=== PATIENT | female | born 1955 | race Caucasian/White ===

== ENCOUNTER → 2016-08-26 | Outpatient (CLI) | payer BC ==
[2016-08-26 17:38] LABS: Appearance,Urine Clear (Clear); Bilirubin,Urine Negative (Negative); Glucose,Urine (UA) Negative (Negative); Ketones,Urine Negative (Negative); Leukocyte Esterase,Urine Negative (Negative); Nitrite,Urine Negative (Negative); Protein,Urine Negative (Negative); Specific Gravity,Urine 1.004 (1.001-1.035); UA Billing (MACRO vs. MICRO) CHEM; Urobilinogen,Urine <2.0 mg/dL (<2.0)
--- NOTE | 2016-08-26 19:21 | HP ---
CHIEF COMPLAINT: The patient is here for her routine gynecologic exam. HISTORY OF PRESENT ILLNESS: This is a 60-year-old with an LMP of 2006. She states it has been about 4 years since her last pelvic exam. She has been experiencing some urinary symptoms since 06/24. She was treated by Dr. Davenport at that time. The symptoms slightly improved, but she does not feel that it was completely treated. She continues to have some bladder pressure, urinary frequency and urgency. She denies dysuria. The patient is otherwise without complaints and she denies any postmenopausal bleeding. PAST MEDICAL HISTORY: 1. Hypothyroidism. 2. Seasonal allergies. 3. Osteopenia. Dr. Davenport is her primary care physician. MEDICATIONS: 1. Levothyroxine 25 mcg daily. 2. Vitamin D3 2000 units daily. 3. Caltrate calcium supplement 600 mg with vitamin D one daily. 4. [id number] Zyrtec 10 mg p.r.n. ALLERGIES: NO KNOWN DRUG ALLERGIES. PAST SURGICAL HISTORY: 1. Tonsillectomy as a child. 2. Colonoscopy x2. The most recent one was in 2014. PAST OB HISTORY: One vaginal delivery. PAST WHAT JOB TITLES MEAN HISTORY: She has been menopausal since 2006 and has no history of STDs. FAMILY HISTORY: Father of CHF and pulmonary fibrosis. Mother has dementia. She has a great grandmother and a great aunt who had breast cancer. She had a grandmother who had heart disease and diabetes. REVIEW OF SYSTEMS: Weight has been stable. She denies respiratory, cardiac or GI problems. PHYSICAL EXAMINATION: Blood pressure 145/73. Height 5 feet 6 inches. Weight 142 pounds. Temperature 97.6, pulse 71. This is a well-developed, well-nourished white female who is alert and oriented x3, in no acute distress. HEENT is within normal limits. NECK: Supple without mass or thyromegaly. CHEST AND LUNGS: Clear to auscultation. HEART: Regular rate and rhythm. Breasts are without mass or discharge. Axillary exam is negative for adenopathy. BACK: Negative for CVA tenderness. ABDOMEN: Soft, non-tender, without palpable masses. PELVIC EXAM: External genitalia reveal mild to moderate atrophy without lesions. There is a benign-appearing mole in the groin crease near the buttock measuring approximately 8 mm. Cervix and vagina reveal mild to moderate atrophy without lesions. There is no evidence of prolapse. The uterus is mid position, non-gravid size and non-tender. There are no palpable adnexal masses or tenderness. Rectovaginal exam is negative for mass or tenderness and is negative for occult blood. Extremities are non-tender. IMPRESSION: 1. [id number]-paru-[id number] menopausal female with normal gynecologic exam. 2. Benign-appearing skin mole in the left groin crease near the buttock. 3. Urinary symptoms consisting of urinary urgency and frequency. PLAN: 1. Pap smear was performed. 2. Self breast examination was discussed. 3. Mammogram will be due in 05/26, according to the patient, and a slip was given to the patient for this. She would like to continue to go to [facility] for this. 4. UA and C&S were obtained. This was a clean catch, a voided specimen. 5. I have discussed the benign-appearing mole with the patient. She believes she has had this for many years. I have advised her to check this on a regular basis to look for changes, and she will notify me if she does notice changes. 6. We have discussed her osteopenia, and osteoporosis prevention was also discussed. She will continue to follow up with Dr. Davenport for bone density testing as she has done in the past. 7. She will return in one year. MOR
== END | disposition home or self-care (01) ==
LOC: WWCWWP 07:48
PROVIDERS: ATTEND Obstetrics & Gynecology
DX: Z01.419 Encounter for gynecological examination (general) (routine) without abnormal findings (principal); R35.0 Frequency of micturition
CPT/HCPCS: 81003; 87086

== ENCOUNTER → 2017-09-14 | Outpatient (CLI) | payer BC ==
[2017-09-14 08:02] VITALS: BP 122/72; PULSE 72; TEMP 98; BMI 23.8
--- NOTE | 2017-09-14 08:37 | P.HPOB ---
History of Present Illness H&P Date: 09/14/17 Chief Complaint: The patient is here for her routine gynecologic exam. This is a 61-year-old with an LMP of 2006. The patient is without gynecologic complaints. She has been doing her bone density testing through Dr. Davenport. She had a mammogram on 09/08/2017 and was normal according to the patient. She will try to have a copy of this sent to me. Review of Systems The patient has gained 6 pounds over the last year. She denies respiratory, cardiac, or G.I. problems. 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 [employer] - Past Family History Father Family Medical History: Congestive Heart Failure (CHF) Additional Family Medical History / Comment(s): Pulmonary fibrosis Mother Family Medical History: Dementia Additional Family Medical History / Comment(s): Great grandmother and great aunt had breast cancer Medications and Allergies Home Medications Medication Instructions Recorded Confirmed Type Calcium Carbonate/Vitamin D3 tab PO DAILY 09/14/17 History [Caltrate 600 Plus D3 Tablet] Cetirizine HCl [Zyrtec] PO DIRECTED 09/14/17 History Cholecalciferol (Vitamin D3) cap PO DAILY 09/14/17 History [Vitamin D3] Levothyroxine Sodium [Synthroid] PO MDD d 09/14/17 History Magnesium Gluconate [Magonate] mg PO DAILY 09/14/17 History Allergies Allergy/AdvReac Type Severity Reaction Status Date / Time No Known Allergies Allergy Unverified 09/14/17 07:52 Exam Vital Signs Temp Pulse BP 09/14/17 07:54 98.0 F 72 122/72 Intake and Output 09/13/17 09/14/17 09/14/17 22:59 06:59 14:59 Other: Weight 67.132 kg Height 5'6", BMI 23.9. This is a well-developed well-nourished white female who is alert and oriented times 3 in no acute distress. HEENT: Within normal limits. NECK: Supple without mass or thyromegaly. CHEST AND LUNGS: Clear to auscultation. HEART: Regular rate and rhythm. BREASTS: Are without mass or discharge. AXILLARY EXAM: Negative for adenopathy. BACK: Negative for CVA tenderness. ABDOMEN: Soft, nontender, without palpable masses. PELVIC EXAM: Normal external genitalia with mild atrophy. There is a benign appearing mole in the groin crease near the left buttock measuring approximately 8 mm. This is stable from her exam last year. Cervix and vagina appear normal with mild atrophy. There is no unusual discharge. There is no evidence of prolapse. The uterus is midposition, nongravid size and nontender. There are no palpable adnexal masses or tenderness. RECTAL EXAM: rectovaginal exam is negative for mass or tenderness and is negative for occult blood. EXTREMITIES: Nontender. IMPRESSION: 1. 61 year old menopausal female with normal gynecologic exam. 2. Stable benign appearing skin mole in the left groin crease near the buttock. 3. History of osteopenia. PLAN: 1. Pap smear was deferred since she had a normal one last year. 2. Self breast awareness was discussed. 3. Screening mammogram was done on 09/08/2017 and was normal per the patient. She will try to get a copy of this mammogram to me from Dr. Davenport. Mammograms has been ordered by Dr. Davenport and has been done at [facility]. I have asked her to try to have copies of future mammogram sent to me. 4. She states she is scheduled for a screening colonoscopy on 09/27/2017. 5. Osteoporosis prevention was discussed. Bone density testing will be done through Dr. Davenport, as she has done in the past. 6. She will be having a skin cancer screening done by Dr. Davenport in the near future, according to the patient. 7. She will return in one year.
== END | disposition home or self-care (01) ==
LOC: WWCWWP 07:41
PROVIDERS: ATTEND Obstetrics & Gynecology
DX: Z53.9 Procedure and treatment not carried out, unspecified reason (principal)

== ENCOUNTER → 2018-11-08 | Outpatient (CLI) | payer BC ==
[2018-11-08 11:27] VITALS: BP 132/78; PULSE 73; RESP 18; TEMP 98.7; BMI 25.9
--- NOTE | 2018-11-08 12:08 | P.HPOB ---
History of Present Illness H&P Date: 11/08/18 Chief Complaint: The patient is here for her routine gynecologic exam. This is a 63-year-old with an LMP of 2006. The patient is without gynecologic complaints and denies any postmenopausal bleeding. Review of Systems The patient has gained 8 pounds over the last year. She denies respiratory, cardiac, or G.I. problems. Past Medical History Past Medical History: No Reported History, Thyroid Disorder Additional Past Medical History / Comment(s): Seasonal allergies and osteopenia. Hypothyroidism. 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 History of Any Multi-Drug Resistant Organisms: None Reported Past Surgical History: Tonsillectomy Additional Past Surgical History / Comment(s): Colonoscopy 2014(2nd, next after 5yrs). 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 - Past Family History Father Family Medical History: Congestive Heart Failure (CHF) Additional Family Medical History / Comment(s): Pulmonary fibrosis Mother Family Medical History: Dementia Additional Family Medical History / Comment(s): Great grandmother and great aunt had breast cancer Medications and Allergies Home Medications Medication Instructions Recorded Confirmed Type Calcium Carbonate/Vitamin D3 1 tab PO DAILY 09/14/17 11/08/18 History [Caltrate 600 Plus D3 Tablet] Cetirizine HCl [Zyrtec] 1 tab PO DIRECTED 09/14/17 11/08/18 History Levothyroxine Sodium [Synthroid] 1 tab PO DAILY MDD d 09/14/17 11/08/18 History Collagen Peptids 1 tab PO DAILY 11/08/18 11/08/18 History Allergies Allergy/AdvReac Type Severity Reaction Status Date / Time measles vaccine, live Allergy Rash/Hives Unverified 11/08/18 11:28 Exam Vital Signs Temp Pulse Resp BP Pulse Ox 11/08/18 11:21 98.7 F 73 18 132/78 97 Intake and Output 11/07/18 11/08/18 11/08/18 22:59 06:59 14:59 Other: Weight 70.76 kg Height 5 feet 5 inches, weight 156 pounds, BMI 26.0. This is a well-developed well-nourished white female who is alert and oriented times 3 in no acute distress. HEENT: Within normal limits. NECK: Supple without mass or thyromegaly. CHEST AND LUNGS: Clear to auscultation. HEART: Regular rate and rhythm. BREASTS: Are without mass or discharge. AXILLARY EXAM: Negative for adenopathy. BACK: Negative for CVA tenderness. ABDOMEN: Soft, nontender, without palpable masses. PELVIC EXAM: Normal external genitalia with mild to moderate atrophy. Cervix and vagina appear normal with mild to moderate atrophy. Cervix is somewhat stenotic secondary to atrophy. There is no unusual discharge. There is no evidence of prolapse. The uterus is midposition, nongravid size and nontender. There are no palpable adnexal masses or tenderness. RECTAL EXAM: Rectovaginal exam is negative for mass or tenderness and is negative for occult blood. EXTREMITIES: Nontender. IMPRESSION: 1. 63-year-old menopausal female with normal gynecologic exam. 2. History of osteopenia. PLAN: 1. Pap smear was performed. 2. Self breast awareness was discussed with the patient. 3. Screening mammogram was done on 09/23/2018 and was benign. This will be repeated in 1 year. 4. Osteoporosis prevention was discussed. I have stressed the importance of adequate calcium, vitamin D and regular exercise. Recommended amounts of calcium and vitamin D were also discussed. Bone density testing will be done through Dr. Davenport as she has done in the past. She believes her last one was done within the past year. 5. She was advised to return in one year for her annual well woman exam.
== END | disposition home or self-care (01) ==
LOC: WWCWWP 11:11
PROVIDERS: ATTEND Obstetrics & Gynecology
DX: Z53.9 Procedure and treatment not carried out, unspecified reason (principal)

== ENCOUNTER → 2020-11-06 | Outpatient (CLI) | payer OTHER ==
--- NOTE | 2020-11-06 16:51 | XR ---
EXAMINATION TYPE: XR ankle complete RT DATE OF EXAM: 11/06/2020 COMPARISON: NONE HISTORY: Ankle pain TECHNIQUE: 3 views FINDINGS: There is soft tissue swelling around the ankle joint. Detail limited by the cast. There is nondisplaced oblique fracture distal fibula. IMPRESSION: Soft tissue swelling. Lateral malleolus fracture. No significant displacement.
== END | disposition home or self-care (01) ==
LOC: RADXRMAIN 16:27
PROVIDERS: ATTEND Emergency Medicine
DX: S82.61XA Displaced fracture of lateral malleolus of right fibula, initial encounter for closed fracture (principal)

== ENCOUNTER → 2021-08-28 | Outpatient (CLI) | payer MEDICARE ==
[2021-08-28 13:17] VITALS: BP 147/83; PULSE 83; RESP 16; TEMP 99.1
--- NOTE | 2021-08-28 13:45 | P.GSHP ---
History of Present Illness H&P Date: 08/28/21 Chief Complaint: abnormal mammogram Brigitte is a 65 year old white female seen in consultation for Dr. Davenport regarding a mammographic abnormality in her she underwent a bilateral mammogram on . Report noted a slight fluctuating nodularity in the right breast. This was located in the posterior upper outer quadrant, she was also noted to have some nodularity in the subareolar right breast which was slightly more defined. It was felt this may be a cyst or intramammary lymph node. Short interval follow-up at 6 months was recommended. The patient was noted of concern in the left breast. Patient does not feel any new lumps masses or nodules of concern in either breast. She is not complaining of any nipple discharge or skin changes. She has not had any recent trauma or infection in the breast. She's never had any breast biopsies or surgery on her breast. Caffeine: 2 cups/day nicotine: none hormones: none; BCP in the past stopped 20 years ago used them for 10 years Family History: maternal great aunt: breasts cancer maternal great grandmother: breast cancer Hormonal History: menarche: 15 , breast fed: yes, age at : 30 menopause: 50 Surgical History: wisdom teeth Medical History: left bundle branch block/ recent stress test hypothyroid/Katlyn's Social History: nicotine: none alcohol: wine QOD drug: none - Constitutional Constitutional: Denies chills, Denies fever - EENT Eyes: denies blurred vision, denies pain Ears: deny: decreased hearing, tinnitus Ears, nose, mouth and throat: Denies headache, Denies sore throat - Breasts Breasts: bilateral: as per HPI - Cardiovascular Cardiovascular: Reports as per HPI - Respiratory Respiratory: Denies cough, Denies 7 - Gastrointestinal Gastrointestinal: Denies abdominal pain, Denies diarrhea, Denies nausea, Denies vomiting - Genitourinary (Female) Genitourinary: Denies dysuria, Denies hematuria - Menstruation Menstruation: Reports postmenopausal - Musculoskeletal Musculoskeletal: Denies myalgias - Integumentary Comment: hypersensativity recent allergy testing Integumentary: Reports pruritus, Denies rash - Neurological Neurological: Denies numbness, Denies weakness - Psychiatric Psychiatric: Denies anxiety, Denies depression - Endocrine Endocrine: Denies fatigue, Denies weight change - Hematologic/Lymphatic Comment: none - Allergic/Immunologic Allergic/Immunologic: Reports as per HPI Past Medical History Past Medical History: No Reported History, Thyroid Disorder Additional Past Medical History / Comment(s): Seasonal allergies and osteopenia. 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 History of Any Multi-Drug Resistant Organisms: None Reported Past Surgical History: Tonsillectomy Additional Past Surgical History / Comment(s): Colonoscopy 2015(2nd, next after 5yrs). Past Psychological History: No Psychological Hx Reported Smoking Status: Former smoker Past Alcohol Use History: Occasional Past Drug Use History: None Reported - Past Family History Father Family Medical History: Congestive Heart Failure (CHF) Additional Family Medical History / Comment(s): Pulmonary fibrosis Mother Family Medical History: Dementia Additional Family Medical History / Comment(s): Great grandmother and great aunt had breast cancer Medications and Allergies Home Medications Medication Instructions Recorded Confirmed Type Calcium Carbonate/Vitamin D3 1 tab PO DAILY 09/14/17 08/28/21 History [Caltrate 600 Plus D3 Tablet] Cetirizine HCl [Zyrtec] 1 tab PO DIRECTED 09/14/17 08/28/21 History Levothyroxine Sodium [Synthroid] 1 tab PO DAILY 09/14/17 08/28/21 History Collagen Peptids 1 tab PO DAILY 11/08/18 08/28/21 History Ascorbic Acid [Vitamin C] 500 mg PO DAILY 08/28/21 08/28/21 History Cholecalciferol [Vitamin D3 (25 25 mcg PO DAILY 08/28/21 08/28/21 History Mcg = 1000 Iu)] Famotidine [Pepcid] 0 mg PO DAILY 08/28/21 08/28/21 History Allergies Allergy/AdvReac Type Severity Reaction Status Date / Time measles vaccine, live Allergy Rash/Hives Unverified 08/28/21 13:17 Surgical - Exam Vital Signs Temp Pulse Resp BP Pulse Ox 99.1 F 83 16 147/83 99 08/28/21 13:13 08/28/21 13:13 08/28/21 13:13 08/28/21 13:13 08/28/21 13:13 BMI: 24.7 - Eyes normal ocular movement - Neck trachea midline - Respiratory normal respiratory effort, clear to auscultation - Cardiovascular Rhythm: regular Heart Sounds: normal: S1, S2 - Abdomen Abdomen: soft, non tender, no guarding, no rigid, no rebound - Integumentary normal turgor - Neurologic no disoriented, no combative - Musculoskeletal normal gait - Psychiatric oriented to time, oriented to person, oriented to place, speech is normal, memory intact Breast Exam: BRA: 38DD inspection: Right breast slightly larger than left breast, grade 2/3 ptosis Palpation: Right breast: Multiple positional exam fibrocystic changes no dominant masses or nodules of concern Right axilla: No adenopathy of concern Left breast: Multiple positional exam fibrocystic changes no dominant masses or nodules of concern Left axilla: No adenopathy of concern Results Mammogram reviewed with Dr. Soto; 2 areas of more distinct nodularity than on prior films identified in the right breast when upper outer quadrant posteriorly and one in the periareolar area Assessment and Plan Assessment: Impression: Fibrocystic breast changes Prominent nodular areas right breast in 2 sites on mammogram from [id number]/reviewed with Dr. Hendrix ultrasound recommended Plan: Ultrasound right breast particular attention to areas of nodularity noted on mammogram If ultrasound does not reveal anything of concern with repeat mammogram in 6 months, if ultrasound has any areas of concern would consider core biopsy Cc: Dr. Davenport
--- NOTE | 2021-08-28 14:24 | USB ---
Reason for Exam: Additional evaluation requested from abnormal screening. Patient History: Menarche at age 15. First Full-Term at age 30. Late child-bearing (after 30). Maternal grandmother had breast cancer. Maternal aunt had breast cancer. Risk Values: Corrine 5 year model risk: 2.1%. NCI Lifetime model risk: 7.8%. Technique: Method: Whole Breast Handheld. Patient Position: Supine. Prior Study Comparison: 10/04/2007 Right Diagnostic Mammogram, [facility]. 10/04/2008 Bilateral Screening Mammogram, [facility]. 05/13/2011 Bilateral Screening Mammogram, [facility]. Findings: The whole breast of the right breast, the axilla of the right breast and the retroareolar of the right breast were scanned. Whole right breast ultrasound is performed including scanning of the subareolar region and axilla. There is some nonocclusive clot periareolar duct ectasia noted. No internal filling defect. At the 10:00 position, 10 cm from the nipple, there is a 8mm benign-appearing laxity tail lymph node. No other solid or cystic lesion. Short interval follow-up diagnostic right breast mammogram recommended. Overall Assessment: Probably benign, BI-RAD 3 Management: Diagnostic Mammogram of the right breast in 4 months. 1. 4 month follow-up diagnostic right breast mammogram (to serve as comparison to the patient's 07/02/2021 screening exam) in order to reassess the fluctuating nodularity, some of which is slightly larger over the course of 3 years. 2. Patient should continue monthly self breast exams. A clinical breast exam by your physician is recommended on an annual basis. Electronically signed and approved by: Dipesh Soto M.D. Radiologist
== END ==
LOC: WWCWWP 12:27
PROVIDERS: ATTEND Surgery
DX: N60.11 Diffuse cystic mastopathy of right breast (principal); N60.12 Diffuse cystic mastopathy of left breast; E03.9 Hypothyroidism, unspecified; Z87.891 Personal history of nicotine dependence; Z79.890 Hormone replacement therapy; Z88.7 Allergy status to serum and vaccine

== ENCOUNTER → 2021-12-29 | Outpatient (CLI) | payer MEDICARE ==
--- NOTE | 2021-12-29 09:41 | MM ---
Reason for Exam: Follow-up at short interval from prior study. Last screening mammogram was performed 6 month(s) ago. Patient History: Menarche at age 15. First Full-Term at age 30. Late child-bearing (after 30). Postmenopausal. Patient has history of breast feeding. Maternal grandmother had breast cancer under age 50. Risk Values: Corrine 5 year model risk: 2.1%. NCI Lifetime model risk: 7.5%. Prior Study Comparison: 10/04/2007 Right Diagnostic Mammogram, [facility]. 10/04/2008 Bilateral Screening Mammogram, [facility]. 05/13/2011 Bilateral Screening Mammogram, [facility]. 09/23/2018 Bilateral MG screening mammo w CAD - 2, Unknown. 07/02/2021 Bilateral MG screening mammo w CAD - 2, Unknown. Tissue Density: Right: The breast tissue is heterogeneously dense. This may lower the sensitivity of mammography. Findings: Analyzed By CAD. Chronic nodularity right breast unchanged from prior study. No suspicious pulmonary nodules or masses. No suspicious microcalcifications. Overall Assessment: Benign, BI-RAD 2 Management: Screening Mammogram of both breasts in 6 months. A clinical breast exam by your physician is recommended on an annual basis and results should be correlated with mammographic findings. This exam should not preclude additional follow-up of suspicious palpable abnormalities. Results were given to the patient verbally at the time of exam. Electronically signed and approved by: Enrique Herbert M.D. Radiologis
== END | disposition home or self-care (01) ==
LOC: RADMAMWWP 08:51
PROVIDERS: ATTEND Surgery
DX: R92.8 Other abnormal and inconclusive findings on diagnostic imaging of breast (principal); Z78.0 Asymptomatic menopausal state; Z80.3 Family history of malignant neoplasm of breast
CPT/HCPCS: 77065; G0279; 77061

== ENCOUNTER → 2022-01-08 | Outpatient (CLI) | payer MEDICARE ==
[2022-01-08 09:08] VITALS: BP 141/64; PULSE 76; RESP 17; TEMP 98
--- NOTE | 2022-01-08 09:45 | P.PN ---
Subjective Progress Note Date: 01/08/22 Principal diagnosis: fibro cystic breast changes Brigitte is a 66 year old white female seen in consultation for Dr. Davenport regarding a mammographic abnormality in [place] [id number]. Report noted a slight fluctuating nodularity in the right breast. This was located in the posterior upper outer quadrant, she was also noted to have some nodularity in the subareolar right breast which was slightly more defined. It was felt this may be a cyst or intramammary lymph node. Short interval follow-up at 6 months was recommended. The patient did not note anything of concern in the left breast. Patient does not feel any new lumps masses or nodules of concern in either breast. She is not complaining of any nipple discharge or skin changes. She has not had any recent trauma or infection in the breast. She's never had any breast biopsies or surgery on her breast. She underwent a right breast mammogram on [id number] which was benign BIRADS 2. Caffeine: 2 cups/day nicotine: none hormones: none; BCP in the past stopped 20 years ago used them for 10 years Family History: maternal great aunt: breasts cancer maternal great grandmother: breast cancer Hormonal History: menarche: 15 , breast fed: yes, age at : 30 menopause: 50 Surgical History: wisdom teeth Medical History: left bundle branch block/ has had stress tests done hypothyroid/Katlyn's Social History: nicotine: none alcohol: wine QOD drug: none - Constitutional Constitutional: Denies chills, Denies fever - EENT Eyes: denies blurred vision, denies pain Ears: deny: decreased hearing, tinnitus Ears, nose, mouth and throat: Denies headache, Denies sore throat - Breasts Breasts: bilateral: as per HPI - Cardiovascular Cardiovascular: Reports as per HPI - Respiratory Respiratory: Denies cough - Gastrointestinal Gastrointestinal: Denies abdominal pain, Denies diarrhea, Denies nausea, Denies vomiting - Genitourinary (Female) Genitourinary: Denies dysuria, Denies hematuria - Menstruation Menstruation: Reports postmenopausal - Musculoskeletal Musculoskeletal: Denies myalgias - Integumentary Comment: hypersensativity recent allergy testing Integumentary: Reports pruritus, Denies rash - Neurological Neurological: Denies numbness, Denies weakness - Psychiatric Psychiatric: Denies anxiety, Denies depression - Endocrine Endocrine: Denies fatigue, Denies weight change - Hematologic/Lymphatic Comment: none - Allergic/Immunologic Allergic/Immunologic: Reports as per HPI Past Medical History Past Medical History: No Reported History, Thyroid Disorder Additional Past Medical History / Comment(s): Seasonal allergies and osteopenia. Hypothyroidism. PAST [employer] HISTORY: She has no history of STDs. History of Any Multi-Drug Resistant Organisms: None Reported Past Surgical History: Tonsillectomy Additional Past Surgical History / Comment(s): Colonoscopy 2015(2nd, next after 5yrs). Past Psychological History: No Psychological Hx Reported Smoking Status: Former smoker Past Alcohol Use History: Occasional Past Drug Use History: None Reported - Past Family History Father Family Medical History: Congestive Heart Failure (CHF) Additional Family Medical History / Comment(s): Pulmonary fibrosis Mother Family Medical History: Dementia Additional Family Medical History / Comment(s): Great grandmother and great aunt had breast cancer Objective - Vital Signs Vital signs: Vital Signs Temp 98 F 01/08/22 09:06 Pulse 76 01/08/22 09:06 Resp 17 01/08/22 09:06 BP 141/64 01/08/22 09:06 Pulse Ox 100 01/08/22 09:06 FiO2 Intake & Output 01/07/22 01/08/22 01/08/22 18:59 06:59 18:59 Weight 68.946 kg - Constitutional General appearance: Present: cooperative - EENT Eyes: Present: EOMI ENT: Present: hearing grossly normal - Neck Neck: Present: normal ROM - Respiratory Respiratory: bilateral: CTA - Cardiovascular Rhythm: regular Heart sounds: normal: S1, S2 - Integumentary Integumentary: Present: normal turgor - Musculoskeletal Musculoskeletal: Present: gait normal - Psychiatric Psychiatric: Present: A&O x's 3, appropriate affect, intact judgment & insight - Additional findings Additional findings: Breast exam: BRA: 38D inspection: Bilateral grade 2/3 ptosis Palpation: Right breast: Multi-positional exam fibrocystic changes, under the breast there appears to be some fungal infection Left breast: Multiple positional exam fibrocystic changes, under the breast and the medial aspect some questionable 5 fungal changes Bilateral axilla: No adenopathy of concern Assessment and Plan Assessment: Impression: Fibrocystic breast changes Recent right breast mammogram benign BIRADS 2 Plan: Repeat bilateral mammogram in 6 months with a physician exam at that time Nystatin as needed for fungal infection under both breasts particularly in the medial aspects CC: Dr. Davenport
== END ==
LOC: WWCWWP 08:53
PROVIDERS: ATTEND Surgery
DX: N60.11 Diffuse cystic mastopathy of right breast (principal); N60.12 Diffuse cystic mastopathy of left breast; Z87.891 Personal history of nicotine dependence; Z88.7 Allergy status to serum and vaccine

== ENCOUNTER → 2022-06-29 | Outpatient (CLI) | payer MEDICARE ==
--- NOTE | 2022-06-30 08:28 | MM ---
Reason for Exam: Screening (asymptomatic). Last screening mammogram was performed 12 month(s) ago. Patient History: Menarche at age 15. First Full-Term at age 30. Late child-bearing (after 30). Postmenopausal. Patient has history of breast feeding. Risk Values: Corrine 5 year model risk: 2.1%. NCI Lifetime model risk: 7.5%. Prior Study Comparison: 09/23/2018 Bilateral MG screening mammo w CAD - 2, Unknown. 07/02/2021 Bilateral MG screening mammo w CAD - 2, Unknown. 12/29/2021 Right MG 3D diag mammo w/cad RT, [facility]. Tissue Density: The breast tissue is heterogeneously dense. This may lower the sensitivity of mammography. Findings: Analyzed By CAD. There is no suspicious group of microcalcifications or new suspicious mass in either breast. Overall Assessment: Negative, BI-RAD 1 Management: Screening Mammogram of both breasts in [address] [facility] will attempt to contact patient to return for supplemental views and ultrasound if indicated. Patient should continue monthly self-breast exams. A clinical breast exam by your physician is recommended on an annual basis. This exam should not preclude additional follow-up of suspicious palpable abnormalities. Note on Corrine scores and lifetime risk: 1. A Corrine score greater than 3% is considered moderate risk. If this is the case, consider specialist referral to assess eligibility for a risk reducing agent. 2. If overall lifetime risk for the development of breast cancer is 20% or higher, the patient may qualify for future screening with alternating mammogram and breast MRI. Electronically signed and approved by: Ilir Boyd DO
== END | disposition home or self-care (01) ==
LOC: RADMAMWWP 08:51
PROVIDERS: ATTEND Surgery
DX: Z12.31 Encounter for screening mammogram for malignant neoplasm of breast (principal); Z78.0 Asymptomatic menopausal state
CPT/HCPCS: 77063; 77067

== ENCOUNTER 2022-12-22 10:16 | Day surgery (SDC) | payer MEDICARE ==
[2022-12-18 14:52] VITALS: BMI 25.4
[~2022-12-22 10:16] MED LIST: LACTATED RINGERS 1,000 ML IV SCH; LIDOCAINE 1% (10MG/ML) FOR IV START INTRADERMA PRN
[2022-12-22 11:02] VITALS: RESP 16; TEMP 99.7
[2022-12-22] MEDS ORDERED: PROPOFOL 10 MG/ML 20 ML VIAL IV ONE (11:47)
--- NOTE | 2022-12-22 12:14 | P.PCN ---
Date of Procedure: 12/22/22 Procedure(s) Performed: BRIEF HISTORY: Patient is a 67-year-old pleasant white female scheduled for an elective colonoscopy as a part of evaluation of prior history of colon polyps. Last colonoscopy was 5 years ago. PROCEDURE PERFORMED: Colonoscopy with snare polypectomy, biopsy and argon plasma coagulation PREOPERATIVE DIAGNOSIS: History of colon polyps. IV sedation per Anesthesia. PROCEDURE: After informed consent was obtained, the patient, was brought into the endoscopy unit. IV sedation was administered by Anesthesia under continuous monitoring. Digital rectal examination was normal. Initially the Olympus CF-160 flexible video colonoscope was then inserted in the rectum, gradually advanced into the cecum without any difficulty. Careful examination was performed as the scope was gradually being withdrawn. The appendiceal orifice were visualized and appeared normal. Prep was excellent. On the ileocecal valve and the inferior the there was a 2 cm flat polyp identified. Part of the polyp was removed by snare polypectomy. Since the polyp could not be removed completely multiple b iopsies were done from this area. Following this argon plasma coag ablation was performed along the entire polyp on the ileocecal valve. Mucosa of the cecum, ascending colon, transverse colon, descending colon, sigmoid colon, and rectum appeared normal. Retroflexion was performed in the rectum and no lesions were seen. The patient tolerated the procedure well. IMPRESSION: 2 cm flat polyp on the inferior lip of the ileocecal valve status post partial snare polypectomy followed by multiple biopsies and argon plasma coagulation and almost complete polypectomy accomplished Rest of the colon appeared normal RECOMMENDATIONS: Findings of this examination were discussed with the patient is a family.. He was advised to follow with the biopsy results. She'll be seen in office in 2 weeks. Reason the biopsy results will plan a repeat colonoscopy in 6 months
[2022-12-22 12:46] VITALS: BP 114/66; PULSE 67
== END 2022-12-22 13:19 | disposition home or self-care (01) ==
LOC: ORWHC2ENDO 10:16
PROVIDERS: ATTEND Internal Medicine Gastroenterology
DX: Z12.11 Encounter for screening for malignant neoplasm of colon (principal); I10 Essential (primary) hypertension; E78.5 Hyperlipidemia, unspecified; I44.7 Left bundle-branch block, unspecified; E03.9 Hypothyroidism, unspecified; Z79.890 Hormone replacement therapy; Z87.891 Personal history of nicotine dependence; Z88.8 Allergy status to other drugs, medicaments and biological substances; Z86.010 Personal history of colon polyps; Z79.899 Other long term (current) drug therapy
CPT/HCPCS: 88305; 88342; 45380; 45385; 45388; J2704

== ENCOUNTER 2023-06-29 10:21 | Day surgery (SDC) | payer MEDICARE ==
[2023-06-23 13:36] VITALS: BMI 25.7
[2023-06-29] MEDS: LACTATED RINGERS 1,000 ML IV ONE (10:30)
[2023-06-29 11:35] VITALS: RESP 18; TEMP 97.2
[2023-06-29] MEDS ORDERED: PROPOFOL 10 MG/ML 20 ML VIAL IV ONE (11:41)
--- NOTE | 2023-06-29 11:53 | P.PCN ---
Date of Procedure: 06/29/23 Procedure(s) Performed: BRIEF HISTORY: Patient is a 67-year-old pleasant white female scheduled for an elective colonoscopy as a part of follow-up of large/polyp in the cecal valve noted on the routine screening colonoscopy December 2022. PROCEDURE PERFORMED: Colonoscopy. PREOPERATIVE DIAGNOSIS: Follow-up ileocecal valve polyp. IV sedation per Anesthesia. PROCEDURE: After informed consent was obtained, the patient, was brought into the endoscopy unit. IV sedation was administered by Anesthesia under continuous monitoring. Digital rectal examination was normal. Initially the Olympus CF-160 flexible video colonoscope was then inserted in the rectum, gradually advanced into the cecum without any difficulty. Careful examination was performed as the scope was gradually being withdrawn. Ileocecal valve and the appendiceal orifice were visualized and appeared normal. Prep was excellent. Mucosa of the cecum, ascending colon, transverse colon, descending colon, sigmoid colon, and rectum appeared normal. Retroflexion was performed in the rectum and no lesions were seen. The patient tolerated the procedure well. IMPRESSION: No residual polyp noted on the ileocecal valve Rest of the colon appeared normal RECOMMENDATIONS: Findings of this examination were discussed with the patient as well as her family. She was advised to have repeat screening colonoscopy in 5 years..
[2023-06-29] MEDS ORDERED: LIDOCAINE 1% (10MG/ML) FOR IV START INTRADERMA PRN (11:59)
[2023-06-29] MEDS ORDERED: LACTATED RINGERS 1,000 ML IV SCH (11:59)
[2023-06-29 12:32] VITALS: BP 129/68; PULSE 69
== END 2023-06-29 12:40 | disposition home or self-care (01) ==
LOC: ORWHC2ENDO 10:21
PROVIDERS: ATTEND Internal Medicine Gastroenterology
DX: Z12.11 Encounter for screening for malignant neoplasm of colon (principal); I10 Essential (primary) hypertension; E78.5 Hyperlipidemia, unspecified; E07.9 Disorder of thyroid, unspecified; Z86.010 Personal history of colon polyps; Z87.891 Personal history of nicotine dependence; Z79.890 Hormone replacement therapy
CPT/HCPCS: J2704; G0105

== ENCOUNTER → 2023-07-21 | Outpatient (CLI) | payer MEDICARE ==
--- NOTE | 2023-07-27 11:46 | MM ---
Reason for Exam: Screening (asymptomatic). Last mammogram was performed 1 year(s) and 1 month(s) ago. Patient History: Menarche at age 15. First Full-Term at age 30. Late child-bearing (after 30). Postmenopausal. Patient has history of breast feeding. Maternal grandmother had breast cancer. Maternal aunt (great) had breast cancer. Risk Values: Corrine 5 year model risk: 2.1%. NCI Lifetime model risk: 7.2%. Prior Study Comparison: 09/23/2018 Bilateral MG screening mammo w CAD - 2, Unknown. 07/02/2021 Bilateral MG screening mammo w CAD - 2, Unknown. 12/29/2021 Right MG 3D diag mammo w/cad RT, [facility]. 06/29/2022 Bilateral MG 3D screening mammo w/cad, [facility]. Tissue Density: There are scattered areas of fibroglandular density. Findings: Analyzed By CAD. Right breast: There is no suspicious group of microcalcifications or new suspicious mass. Left breast: There is no suspicious group of microcalcifications or new suspicious mass. Overall Assessment: Negative, BI-RAD 1 Management: Screening Mammogram of both breasts in [address] [facility] will attempt to contact patient to return for supplemental views and ultrasound if indicated. Patient should continue monthly self-breast exams. A clinical breast exam by your physician is recommended on an annual basis. This exam should not preclude additional follow-up of suspicious palpable abnormalities. Note on Corrine scores and lifetime risk: 1. A Corrine score greater than 3% is considered moderate risk. If this is the case, consider specialist referral to assess eligibility for a risk reducing agent. 2. If overall lifetime risk for the development of breast cancer is 20% or higher, the patient may qualify for future screening with alternating mammogram and breast MRI. Electronically signed and approved by: Ilir Boyd DO
== END | disposition home or self-care (01) ==
LOC: RADMAMWWP 14:01
PROVIDERS: ATTEND Family Medicine
DX: Z12.31 Encounter for screening mammogram for malignant neoplasm of breast (principal); Z78.0 Asymptomatic menopausal state; Z80.3 Family history of malignant neoplasm of breast
CPT/HCPCS: 77063; 77067

== ENCOUNTER → 2024-08-15 | Outpatient (CLI) | payer MEDICARE ==
--- NOTE | 2024-08-15 08:58 | MM ---
Reason for Exam: Screening (asymptomatic). Last mammogram was performed 1 year(s) and 1 month(s) ago. Patient History: Menarche at age 15. First Full-Term at age 30. Late child-bearing (after 30). Postmenopausal. Patient has history of breast feeding. Risk Values: Corrine 5 year model risk: 2.1%. NCI Lifetime model risk: 6.9%. Prior Study Comparison: 12/29/2021 Right MG 3D diag mammo w/cad RT, [facility]. 06/29/2022 Bilateral MG 3D screening mammo w/cad, [facility]. 07/21/2023 Bilateral MG 3D screening mammo w/cad, [facility]. Tissue Density: The breasts are heterogeneously dense, which may obscure small masses. Findings: Analyzed By CAD. Chronic nodularity right breast. There is no suspicious group of microcalcifications or new suspicious mass in either breast. Overall Assessment: Negative, BI-RAD 1 Management: Screening Mammogram of both breasts in 1 year. . Patient should continue monthly self-breast exams. A clinical breast exam by your physician is recommended on an annual basis. This exam should not preclude additional follow-up of suspicious palpable abnormalities. Note on Corrine scores and lifetime risk: 1. A Corrine score greater than 3% is considered moderate risk. If this is the case, consider specialist referral to assess eligibility for a risk reducing agent. 2. If overall lifetime risk for the development of breast cancer is 20% or higher, the patient may qualify for future screening with alternating mammogram and breast MRI. [facility], , 08/15/2024 8:56 AM. Electronically signed and approved by: Zhang Patterson M.D.
== END | disposition home or self-care (01) ==
LOC: RADMAMWWP 07:54
PROVIDERS: ATTEND Family Medicine
DX: Z12.31 Encounter for screening mammogram for malignant neoplasm of breast (principal); R92.333 Mammographic heterogeneous density, bilateral breasts; N63.10 Unspecified lump in the right breast, unspecified quadrant; Z78.0 Asymptomatic menopausal state
CPT/HCPCS: 77063; 77067